=== PATIENT | female | born 1945 | race Hispanic/Latino ===

== ENCOUNTER 2016-08-12 09:30 | Day surgery (SDC) | payer MEDICARE ==
[2016-08-04 12:28] VITALS: BMI 28.3
[2016-08-12 10:23] VITALS: RESP 20; TEMP 97.6
--- NOTE | 2016-08-12 11:08 | CP.SDSHP ---
Same Day Surgery H & P - History Proposed Procedure: US guided FNA of right thyroid nodule Pre-Op Diagnosis: right thyroid nodule - Allergies Allergies: Allergies olanzapine [From Zyprexa] Allergy (Verified 03/01/16 06:14) RASH polen Allergy (Unknown, Uncoded 03/01/16 06:14) CONGESTION - Physical Exam Vital Signs: Vital Signs 08/12/16 09:50 Temperature 97.6 F Pulse Rate 77 Respiratory 20 Rate Blood Pressure 142/85 O2 Sat by Pulse 97 Oximetry Mental Status: Alert & Oriented x3 Neuro: WNL Heart: WNL - Impression Impression: Pt with a 1.1 cm calcified right thyroid nodule. Plan US guided FNA. Pt. Evaluated Today:Candidate for Anesthesia & Procedure: No - Date & Time Date: 08/12/16 Time: 10:55 Short Stay Discharge - Short Stay Discharge Admitting Diagnosis/Reason for Visit: THYROUD NODULE Disposition: HOME/ ROUTINE
--- NOTE | 2016-08-12 11:09 | PCM.SURG1 ---
Surgeon's Initial Post Op Note - Surgeon's Notes Surgeon: Tucker Roger MD Marketing Segment Manager: NONE Type of Anesthesia: Local Pre-Operative Diagnosis: Right thyroid nodule Operative Findings: Calcified right thyroid nodule measuring 1.1 cm Post-Operative Diagnosis: Right thyroid nodule Operation Performed: US guided FNA Specimen/Specimens Removed: 25 g FNA x 4 passes Estimated Blood Loss: EBL {In ML}: 0 Blood Products Given: N/A Drains Used: No Drains Post-Op Condition: Good Date of Surgery/Procedure: 08/12/16 Time of Surgery/Procedure: 11:05
[2016-08-12 12:10] VITALS: O2SAT 98
[2016-08-12 12:12] VITALS: BP 135/83; PULSE 69
--- NOTE | 2016-08-12 14:04 | US ---
PROCEDURE: Date of Procedure: 08/12/2016 PROCEDURE: 1. Ultrasound guided FNA of right thyroid nodule, CPT 98226 2. Ultrasound guidance for FNA, 12008 Medications: 4cc 1% Lidocaine HISTORY: Enlarged right thyroid nodule. TECHNIQUE: Following informed consent and procedure time-out, a limited ultrasound patient's neck confirmed the presence of a 1.5 cm complex right thyroid nodule which is partially calcified. After the patient's neck was prepped and draped in the usual sterile fashion, the skin was anesthetized with 1% lidocaine. Ultrasound-guided fine needle aspiration was then performed of the dominant right thyroid nodule. A total of 4 passes were made into the nodule with 25 gauge needle under ultrasound guidance. The FNA specimen was sent for routine pathology. Post biopsy ultrasound showed no hematoma. IMPRESSION: Ultrasound-guided FNA of the dominant right thyroid nodule.
== END 2016-08-12 11:55 | disposition home or self-care (01) ==
LOC: C.SPRAD 09:30
PROVIDERS: ATTEND Radiology Vascular & Interventional Radiology
DX: E04.1 Nontoxic single thyroid nodule (principal)

== ENCOUNTER 2017-03-16 08:03 | Day surgery (SDC) | payer MEDICARE ==
[2017-03-07 12:45] VITALS: BMI 29.5
[2017-03-16] MEDS ORDERED: Propofol 10 mg/ml Inj (20 ML) ONE ×3 (10:47→11:28)
[2017-03-16] MEDS ORDERED: Lactated Ringer's 500 ML IV SCH (11:00)
[2017-03-16 13:37] VITALS: BP 150/61; PULSE 78; RESP 14; TEMP 96.6; O2SAT 98
== END 2017-03-16 13:20 | disposition home or self-care (01) ==
LOC: C.ENDO 08:03
PROVIDERS: ATTEND Internal Medicine Gastroenterology
DX: D12.2 Benign neoplasm of ascending colon (principal); D12.5 Benign neoplasm of sigmoid colon; K63.5 Polyp of colon; K92.1 Melena; K57.30 Diverticulosis of large intestine without perforation or abscess without bleeding; K64.8 Other hemorrhoids; E11.9 Type 2 diabetes mellitus without complications; E03.9 Hypothyroidism, unspecified; E78.5 Hyperlipidemia, unspecified; I10 Essential (primary) hypertension; Z87.891 Personal history of nicotine dependence
CPT/HCPCS: 45380; 45385; 82948; 88305; J2704; J7120

== ENCOUNTER 2017-10-19 08:19 | Day surgery (SDC) | payer MEDICARE, OTHER ==
[2017-03-07 12:43] VITALS: BMI 29.5
[2017-10-19 10:53] VITALS: TEMP 97
[2017-10-19 10:55] VITALS: O2SAT 96
[2017-10-19 10:56] VITALS: BP 150/66; PULSE 76; RESP 16
[2017-10-19] MEDS ORDERED: Lactated Ringer's 1,000 ML IV SCH (11:15)
--- NOTE | 2017-10-20 14:27 | CARD ---
APPROVED REPORT Date of service: 10/19/2017 EKG Measurement Heart [id number] <Conclusion> Normal sinus rhythm Possible Left atrial enlargement Right bundle branch block Abnormal ECG
== END 2017-10-19 10:45 | disposition home or self-care (01) ==
LOC: C.ENDO 08:19
PROVIDERS: ATTEND Internal Medicine Gastroenterology
DX: Z86.010 Personal history of colon polyps (principal); I45.10 Unspecified right bundle-branch block; Z53.09 Procedure and treatment not carried out because of other contraindication; R07.89 Other chest pain
CPT/HCPCS: 45378; 82948; 93005; J7120

== ENCOUNTER 2017-10-19 10:46 | Inpatient (IN) | payer MEDICARE, OTHER ==
[2017-10-19 10:46] VITALS: BMI 29.5
[2017-10-19] MEDS ORDERED: Aspirin 325 mg EC Tablets PO STA (13:02)
--- NOTE | 2017-10-19 13:13 | RAD ---
Date of service: 10/19/2017 PROCEDURE: CHEST RADIOGRAPH, 1 VIEW HISTORY: Chest pain COMPARISON: 09/05/2013. FINDINGS: LUNGS: The lungs are well inflated and clear. PLEURA: No pneumothorax or pleural fluid seen. CARDIOVASCULAR: Normal. OSSEOUS STRUCTURES: No significant abnormalities. VISUALIZED UPPER ABDOMEN: Normal. OTHER FINDINGS: None. IMPRESSION: No active pulmonary disease.
--- NOTE | 2017-10-19 13:47 | C.PDOC ---
History Of Present Illness 72-year-old female, PMHx includes Hypertension, Diabetes and Hypercholesterolemia, presents to the emergency department with complaints of chest pain. Patient denies fever, vomiting, shortness of breath, or any other associated symptoms. no other complaints at this time. Time Seen by Provider: 10/19/17 12:46 Chief Complaint (Nursing): Chest Pain History Per: Patient History/Exam Limitations: no limitations Onset/Duration Of Symptoms: Hrs Current Symptoms Are (Timing): Still Present Severity: Moderate Past Medical History Reviewed: Historical Data, Nursing Documentation, Vital Signs Vital Signs: Last Vital Signs Temp 98.0 F 10/19/17 11:05 Pulse 76 10/19/17 11:05 Resp 18 10/19/17 11:05 BP 150/66 10/19/17 11:05 Pulse Ox 98 10/19/17 13:48 - Medical History PMH: Anxiety, Arthritis (right knee), Bipolar Disorder, Colonic Polyps, Depression, HTN, Hypercholesterolemia, Hypothyroidism Denies: Diabetes, Hepatitis, Chronic Kidney Disease - [facility] Procedures DRAINAGE OF BLADDER WITH DRAINAGE DEVICE, VIA OPENING (02/27/16) INSERTION OF BIOLOGICAL GRAFT (09/24/13) LAPAROSCOPIC ROBOTIC ASSISTED PROCEDURE (09/24/13) VAGINAL SUSPENSION AND FIXATION WITH GRAFT OR PROSTHESIS (09/24/13) Family History: States: No Known Family Hx - Social History Hx Alcohol Use: No Hx Substance Use: No - Immunization History Hx Tetanus Toxoid Vaccination: No Hx Influenza Vaccination: No Hx Pneumococcal Vaccination: Yes Review Of Systems Except As Marked, All Systems Reviewed And Found Negative. Constitutional: Negative for: Fever, Chills Cardiovascular: Positive for: Chest Pain Musculoskeletal: Negative for: Arm Pain Skin: Negative for: Rash Neurological: Negative for: Weakness, Numbness Physical Exam - Physical Exam Appears: Non-toxic, No Acute Distress Skin: Normal Color, Warm, Dry, No Rash Head: Atraumatic, Normacephalic Eye(s): bilateral: Normal Inspection Nose: Normal Lips: Normal Appearing Neck: Normal ROM Cardiovascular: Rhythm Regular, No Murmur Respiratory: Normal Breath Sounds, No Accessory Muscle Use Gastrointestinal/Abdominal: Soft, No Tenderness Rectal: Heme Negative ED Course And Treatment - Laboratory Results Result Diagrams: 10/19/17 14:00 10/19/17 14:00 O2 Sat by Pulse Oximetry: 98 Pulse Ox Interpretation: Normal Disposition - Disposition Disposition Time: 14:00 Condition: STABLE Forms: [facility] (Tanzanian) - Clinical Impression Clinical Impression: Chest pain - Scribe Statement The provider has reviewed the documentation as recorded by the Scribe (Sheri Martinez) All medical record entries made by the Scribe were at my direction and personally dictated by me. I have reviewed the chart and agree that the record accurately reflects my personal performance of the history, physical exam, medical decision making, and the department course for this patient. I have also personally directed, reviewed, and agree with the discharge instructions and disposition. Physician Patient Turnover Patient Signed Over To: Bee Milton Handoff Comments: pending labs, cxr, reevaluation and disposition
[2017-10-19 14:09] LABS: BASO # 0.1 K/uL (0.0-0.2); BASO % 0.8 % (0.0-2.0); EOS # 0.1 K/uL (0.0-0.7); EOS % 1.4 % (0.0-4.0); HEMOGLOBIN 13.4 g/dL (11.0-16.0); LYMPH # 1.3 K/uL (1.0-4.3); LYMPH % 19.5 % (20.0-40.0); MEAN CELL VOLUME 84.6 fL (81.0-99.0); MEAN CORPUSCULAR HEMOGLOBIN 28.4 pg (27.0-31.0); MEAN CORPUSCULAR HGB CONC 33.5 g/dL (33.0-37.0); MEAN PLATELET VOLUME 8.8 fL (7.2-11.7); MONO # 0.6 K/uL (0.0-0.8); MONO % 8.2 % (0.0-10.0); NEUT # 4.8 K/uL (1.8-7.0); NEUT % 70.1 % (50.0-75.0); NRBC % 0.1 % (0.0-2.0); RBC 4.72 Mil/uL (3.80-5.20); RED CELL DISTRIBUTION WIDTH 14.3 % (11.5-14.5); WHITE BLOOD COUNT 6.9 K/uL (4.8-10.8)
[2017-10-19] MEDS ORDERED: Aspirin 325 mg EC Tablets PO ONE (14:16)
[2017-10-19 14:33] LABS: ALB/GLOB RATIO 1.5 (1.0-2.1); ALBUMIN 4.5 g/dL (3.5-5.0); ALT/SGPT 23 U/L (9-52); AST/SGOT 20 U/L (14-36); BLOOD UREA NITROGEN 8 mg/dL (7-17); CALCIUM 9.5 mg/dl (8.6-10.4); GFR NON-AFRICAN AMERICAN > 60
[2017-10-19] MEDS ORDERED: Glucagon Recombinant 1 mg Inj IM PRN (20:37)
[2017-10-19] MEDS ORDERED: Dextrose 50% SYRINGE Inj (50 ml) IV PRN (20:37)
[2017-10-19 20:48] LABS: CK-MB 1.99 ng/mL (0.0-3.38)
[2017-10-19] MEDS: buPROPion 150 mg/24 Hours XL Tab PO SCH (21:48)
[2017-10-19] MEDS: (Novolog) Insulin Aspart, Recombinant 100 u/ml 10 ml vial SC SCH (22:15)
--- NOTE | 2017-10-19 23:00 | CP.PCM.HP ---
History of Present Illness - History of Present Illness History of Present Illness: cc: chest pain Ms. Juarez is a 72 year old female with PMH hypertension, hyperlipidemia, diabetes, hypothyroidism, anxiety, depression, bipolar with multiple psychiatric hospitalizations, osteoarthritis was admitted today for chest pain while going though her pre-op checklist for routine colonoscopy. She first felt the stabbing pain in her left upper chest when getting dressed for leaving the house. The lightheadedness made her sit down, and it went away in less than 10 minutes with just rest. She felt it again about an hour later at the colonoscopy site, and it similarly went away with rest. She has not felt the pain again since then. It did not radiate and was a 10/10 on the pain scale. Denies headache, diaphoresis, dizziness, syncope, blurry vision, double vision, shortness of breath, nausea, vomiting. ED course: Tylenol, Aspirin, CXR PMH: HTN, HLD, DM, hypothyroidism, anxiety, depression, bipolar, OA PSxH: bilateral carpal tunnel release, L ear surgery for impaired hearing, hemorrhoidectomy, thyroid bx, robotic assisted R sacrocolpopexy and transvaginal sling FamHx: Mother - DM, unknown cause. Father - [place] 60 SocHx: quit smoking <1year ago, 1 ppd smoker. Denies alcohol, denies drugs. Lives alone at senior citizen living. Worked doin basic office work/filing/ typing. Meds: MVI, VitD, Zestril, Synthroid, Pharbetol, Janumet, Wellbutrin, Lamictal All: olanzapine Full Code Proxy: Daughter Teresa Caba [phone] PMD: Latisha Treichlers - [place] calls every 4-6 weeks Present on Admission - Present on Admission Any Indicators Present on Admission: No Review of Systems - Constitutional Constitutional: absent: Anorexia, Chills, Fatigue, Fever, Lethargy - EENT Eyes: absent: Blurred Vision, Diplopia, Dry Eye, Floaters, Sees Flashes, Spots in Vision Ears: Decreased Hearing, Tinnitus. absent: Disequilibrium, Dizziness Nose/Mouth/Throat: absent: Nasal Obstruction, Nasal Trauma, Dysphagia, Odynophagia - Cardiovascular Cardiovascular: Chest Pain, Lightheadedness. absent: Chest Pain at Rest, Claudication, Diaphoresis, Dyspnea, Dyspnea on Exertion, Edema, Pain Radiating to Arm/Neck/Jaw, Leg Edema, Palpitations, Radiating Pain, Rapid Heart Rate, Slow Heart Rate, Syncope - Respiratory Respiratory: absent: Cough, Dyspnea, Hemoptysis, Wheezing, Chest Congestion - Gastrointestinal Gastrointestinal: Dyspepsia, Heartburn. absent: Abdominal Pain, Constipation, Diarrhea, Dysphagia, Odynophagia - Genitourinary Genitourinary: absent: Urinary Frequency, Urinary Hesitance, Urinary Urgency - Musculoskeletal Musculoskeletal: absent: Abnormal Gait, Muscle Weakness, Myalgias - Integumentary Integumentary: absent: Dry Skin, Rash - Neurological Neurological: absent: Abnormal Speech, Disequilibrium, Frequent Falls - Psychiatric Psychiatric: absent: Auditory Hallucinations, Behavioral Changes, Homicidal Ideation, Suicidal Ideation - Endocrine Endocrine: absent: Excessive Sweating, Fatigue, Flushing, Palpitations - Hematologic/Lymphatic Hematologic: absent: Easy Bleeding, Easy Bruising Past Patient History - Infectious Disease Hx of Infectious Diseases: None - Past Medical History & Family History Past Medical History?: Yes - Past Social History Smoking Status: Former Smoker Alcohol: None Drugs: Denies - CARDIAC Hx Hypercholesterolemia: Yes Hx Hypertension: Yes - PULMONARY Hx Respiratory Disorders: No - HEENT Hx HEENT Problems: Yes 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 HX: THYROID NODULE - RENAL Hx Chronic Kidney Disease: No - ENDOCRINE/METABOLIC Hx Hypothyroidism: Yes - INTEGUMENTARY Hx Dermatological Problems: No - MUSCULOSKELETAL/RHEUMATOLOGICAL Hx Arthritis: Yes (right knee) - GASTROINTESTINAL Hx Gastrointestinal Disorders: Yes Hx Hemorrhoids: Yes - PSYCHIATRIC Hx Anxiety: Yes Hx Bipolar Disorder: Yes Hx Depression: Yes Hx Substance Use: No - SURGICAL HISTORY Hx Surgeries: Yes Hx Dilation and Curettage: Yes Other/Comment: carpal tunnel release b/l. perforated eardrum repair, left ear x2. hemorrhoidectomy. HX: ROBOTIC SCAROLOPEXY WITH SLING 09/24/13 - ANESTHESIA Hx Anesthesia: Yes Hx Anesthesia Reactions: Yes (n/v) Hx Malignant Hyperthermia: No Meds Allergies/Adverse Reactions: Allergies Allergy/AdvReac Type Severity Reaction Status Date / Time olanzapine [From Zyprexa] Allergy Intermediate RASH Verified 10/19/17 09:18 polen Allergy Intermediate CONGESTION Uncoded 10/19/17 09:18 Physical Exam - Constitutional Appears: Non-toxic, No Acute Distress - Head Exam Head Exam: ATRAUMATIC, NORMOCEPHALIC - Eye Exam Eye Exam: EOMI, Normal appearance - ENT Exam ENT Exam: Mucous Membranes Moist, Normal Exam - Respiratory Exam Respiratory Exam: Clear to Auscultation Bilateral, NORMAL BREATHING PATTERN. absent: Accessory Muscle Use, Rales, Rhonchi, Wheezes - Cardiovascular Exam Cardiovascular Exam: REGULAR RHYTHM, +S1, +S2. absent: Tachycardia, Gallop, Irregular Rhythm, JVD, Systolic Murmur - GI/Abdominal Exam GI & Abdominal Exam: Normal Bowel Sounds, Soft. absent: Tenderness - Extremities Exam Extremities exam: Positive for: normal capillary refill, normal inspection, pedal pulses present. Negative for: joint swelling, pedal edema, tenderness - Back Exam Back exam: NORMAL INSPECTION. absent: paraspinal tenderness, vertebral tenderness - Neurological Exam Neurological exam: Alert, CN II-XII Intact, Normal Gait, Oriented x3, Reflexes Normal - Psychiatric Exam Psychiatric exam: Anxious Additional comments: labile mood. combative with nursing staff - Skin Skin Exam: Dry, Intact, Normal Color, Warm Results - Vital Signs Recent Vital Signs: Last Vital Signs Temp 98.1 F 10/19/17 18:05 Pulse 75 10/19/17 18:05 Resp 18 10/19/17 18:05 BP 120/74 10/19/17 18:05 Pulse Ox 97 10/19/17 18:05 - Labs Result Diagrams: 10/19/17 14:00 10/19/17 14:00 Labs: Laboratory Results - last 24 hr 10/19/17 10/19/17 10/19/17 14:00 14:00 20:17 WBC 6.9 RBC 4.72 Hgb 13.4 Hct 40.0 MCV 84.6 MCH 28.4 MCHC 33.5 RDW 14.3 Plt Count 234 MPV 8.8 Neut % (Auto) 70.1 Lymph % (Auto) 19.5 L [place] % (Auto) 8.2 Eos % (Auto) 1.4 Baso % (Auto) 0.8 Neut # (Auto) 4.8 Lymph # (Auto) 1.3 [place] # (Auto) 0.6 Eos # (Auto) 0.1 Baso # (Auto) 0.1 Sodium 140 Potassium 4.1 Chloride 101 Carbon Dioxide 26 Anion Gap 17 BUN 8 Creatinine 0.6 L Est GFR ( Amer) > 60 Est GFR (Non-Af Amer) > 60 POC Glucose (mg/dL) Random Glucose 121 H Calcium 9.5 Total Bilirubin 0.6 AST 20 ALT 23 Alkaline Phosphatase 101 Total Creatine Kinase 150 H 157 H CK-MB (Mass) 1.99 Troponin I < 0.0120 < 0.0120 NT-Pro-B Natriuret Pep 28.0 Total Protein 7.5 Albumin 4.5 Globulin 3.0 Albumin/Globulin Ratio 1.5 10/19/17 21:40 WBC RBC Hgb Hct MCV MCH MCHC RDW Plt Count MPV Neut % (Auto) Lymph % (Auto) [place] % (Auto) Eos % (Auto) Baso % (Auto) Neut # (Auto) Lymph # (Auto) [place] # (Auto) Eos # (Auto) Baso # (Auto) Sodium Potassium Chloride Carbon Dioxide Anion Gap BUN Creatinine Est GFR ( Amer) Est GFR (Non-Af Amer) POC Glucose (mg/dL) 119 H Random Glucose Calcium Total Bilirubin AST ALT Alkaline Phosphatase Total Creatine Kinase CK-MB (Mass) Troponin I NT-Pro-B Natriuret Pep Total Protein Albumin Globulin Albumin/Globulin Ratio Assessment & Plan - Assessment and Plan (Free Text) Assessment: 72yoF with PMH HTN, DM, HLD, bipolar, hypothyroidism, anxiety, depression, tinnitus admitted for intermittent chest pain, r/o ACS. Plan: 1) Chest Pain r/o ACS - CXR: neg - ROMIs and EKGs negative x2, pending third set - worsened by anxiety inducing events/exertion, relieved by rest - EKG shows RBBB, non acute - BNP 28.0, CK 150 - f/u lipid panel, Hgb A1c - ASA 81mg po daily Hypertension - Cont Lisinopril 20mg po daily - Monitor vitals Diabetes - Accucheck ACHS - ISS moderate - hypoglycemia protocol - Januvia 50mg po bid - Metformin 500mg po bid Hypothyroidism - TSH 5.04 - f/u free T4 - currently on Levothyroxine 75mcg po ACB - although atient is asymptomatic at this time, consider increasing dose to 100mcg Hx Bipolar, anxiety, depression - denies current SI, HI, hallucinations - Cont bupropion 300mg po HS - Cont Lamictal 200mg po daily Vitamin D deficiency - Cont home Ergocalciferol - NF -> Ergocalciferol 50,000 1 cap po q7d PPx - GI: Protonix 40mg po daily - DVT: Lovenox 40mg sc daily, SCDs unnecessary - patient is walking - Home Pharbetol (acetaminophen) 500mg po prn for pain - MVI - Heart Healthy Diet will d/w Dr. Liv Michelle PGY-1 - Date & Time Date: 10/19/17 Time: 20:00
[2017-10-20 02:49] LABS: CK-MB 2.26 ng/mL (0.0-3.38)
[2017-10-20] MEDS: Levothyroxine 75 MCG TAB PO SCH (06:41)
[2017-10-20 07:20] LABS: BASO % 0.5 % (0.0-2.0); EOS # 0.1 K/uL (0.0-0.7); EOS % 1.7 % (0.0-4.0); LYMPH # 1.2 K/uL (1.0-4.3); MEAN CELL VOLUME 84.2 fL (81.0-99.0); MEAN CORPUSCULAR HEMOGLOBIN 28.7 pg (27.0-31.0); MEAN CORPUSCULAR HGB CONC 34.1 g/dL (33.0-37.0); MEAN PLATELET VOLUME 9.1 fL (7.2-11.7); MONO # 0.6 K/uL (0.0-0.8); MONO % 8.4 % (0.0-10.0); NEUT % 72.4 % (50.0-75.0); NRBC % 0.1 % (0.0-2.0); RBC 4.52 Mil/uL (3.80-5.20); RED CELL DISTRIBUTION WIDTH 13.9 % (11.5-14.5)
[2017-10-20 07:50] LABS: LDL CHOLESTEROL 112 mg/dL (0-129)
[2017-10-20 07:53] LABS: ALB/GLOB RATIO 1.4 (1.0-2.1); ALBUMIN 3.9 g/dL (3.5-5.0); ALT/SGPT 26 U/L (9-52); AST/SGOT 18 U/L (14-36); BLOOD UREA NITROGEN 11 mg/dL (7-17); CALCIUM 9.4 mg/dl (8.6-10.4); GFR NON-AFRICAN AMERICAN > 60; HDL CHOLESTEROL 41 mg/dL (30-70)
[2017-10-20] MEDS: (Novolog) Insulin Aspart, Recombinant 100 u/ml 10 ml vial SC SCH ×4 (09:02→21:06)
--- NOTE | 2017-10-20 09:32 | CP.PCM.DIS ---
Provider - Provider Date of Admission: 10/19/17 16:01 Attending physician: Checo Peck Jr, MD Primary care physician: Dr. Latisha Esquivel Time Spent in preparation of Discharge (in minutes): 40 Diagnosis - Discharge Diagnosis (1) Chest pain Status: Acute Comment: troponins negative X 3 Hospital Course - Lab Results Lab Results: Most Recent Lab Values WBC 7.0 K/uL (4.8-10.8) 10/20/17 06:35 RBC 4.52 Mil/uL (3.80-5.20) 10/20/17 06:35 Hgb 13.0 g/dL (11.0-16.0) 10/20/17 06:35 Hct 38.0 % (34.0-47.0) 10/20/17 06:35 MCV 84.2 fL (81.0-99.0) 10/20/17 06:35 MCH 28.7 pg (27.0-31.0) 10/20/17 06:35 MCHC 34.1 g/dL (33.0-37.0) 10/20/17 06:35 RDW 13.9 % (11.5-14.5) 10/20/17 06:35 Plt Count 209 K/uL (130-400) 10/20/17 06:35 MPV 9.1 fL (7.2-11.7) 10/20/17 06:35 Neut % (Auto) 72.4 % (50.0-75.0) 10/20/17 06:35 Lymph % (Auto) 17.0 % (20.0-40.0) L 10/20/17 06:35 [place] % (Auto) 8.4 % (0.0-10.0) 10/20/17 06:35 Eos % (Auto) 1.7 % (0.0-4.0) 10/20/17 06:35 Baso % (Auto) 0.5 % (0.0-2.0) 10/20/17 06:35 Neut # (Auto) 5.0 K/uL (1.8-7.0) 10/20/17 06:35 Lymph # (Auto) 1.2 K/uL (1.0-4.3) 10/20/17 06:35 [place] # (Auto) 0.6 K/uL (0.0-0.8) 10/20/17 06:35 Eos # (Auto) 0.1 K/uL (0.0-0.7) 10/20/17 06:35 Baso # (Auto) 0.0 K/uL (0.0-0.2) 10/20/17 06:35 Sodium 140 mmol/L (132-148) 10/20/17 06:35 Potassium 4.2 mmol/L (3.6-5.2) 10/20/17 06:35 Chloride 102 mmol/L (98-107) 10/20/17 06:35 Carbon Dioxide 29 mmol/L (22-30) 10/20/17 06:35 Anion Gap 13 (10-20) 10/20/17 06:35 BUN 11 mg/dL (7-17) 10/20/17 06:35 Creatinine 0.7 mg/dL (0.7-1.2) 10/20/17 06:35 Est GFR ( Amer) > 60 10/20/17 06:35 Est GFR (Non-Af Amer) > 60 10/20/17 06:35 POC Glucose (mg/dL) 160 mg/dL (65-110) H 10/20/17 06:11 Random Glucose 154 mg/dL (65-105) H 10/20/17 06:35 Hemoglobin A1c 7.2 % (4.2-6.5) H 10/20/17 06:35 Calcium 9.4 mg/dl (8.6-10.4) 10/20/17 06:35 Phosphorus 3.8 mg/dL (2.5-4.5) 10/20/17 06:35 Magnesium 2.1 mg/dL (1.6-2.3) 10/20/17 06:35 Total Bilirubin 0.4 mg/dL (0.2-1.3) 10/20/17 06:35 AST 18 U/L (14-36) 10/20/17 06:35 ALT 26 U/L (9-52) 10/20/17 06:35 Alkaline Phosphatase 78 U/L (38-126) 10/20/17 06:35 Total Creatine Kinase 149 U/L (30-135) H 10/20/17 02:23 CK-MB (Mass) 2.26 ng/mL (0.0-3.38) 10/20/17 02:23 Troponin I < 0.0120 ng/mL (0.00-0.120) 10/20/17 02:23 NT-Pro-B Natriuret Pep 28.0 pg/mL (0-900) 10/19/17 14:00 Total Protein 6.7 g/dL (6.3-8.3) 10/20/17 06:35 Albumin 3.9 g/dL (3.5-5.0) 10/20/17 06:35 Globulin 2.8 gm/dL (2.2-3.9) 10/20/17 06:35 Albumin/Globulin Ratio 1.4 (1.0-2.1) 10/20/17 06:35 Triglycerides 187 mg/dL (0-149) H 10/20/17 06:35 Cholesterol 208 mg/dL (0-199) H 10/20/17 06:35 LDL Cholesterol Direct 112 mg/dL (0-129) 10/20/17 06:35 HDL Cholesterol 41 mg/dL (30-70) 10/20/17 06:35 Free T4 0.76 ng/dL (0.78-2.19) L 10/20/17 06:35 TSH 3rd Generation 5.04 mIU/L (0.46-4.68) H 10/19/17 20:17 - Hospital Course Hospital Course: Ms. Juarez is a 72 year old female with PMH hypertension, hyperlipidemia, diabetes, hypothyroidism, anxiety, depression, bipolar with multiple psychiatric hospitalizations, osteoarthritis was admitted today for chest pain while going though her pre-op checklist for routine colonoscopy. She first felt the stabbing pain in her left upper chest when getting dressed for leaving the house. The lightheadedness made her sit down, and it went away in less than 10 minutes with just rest. She felt it again about an hour later at the colonoscopy site, and it similarly went away with rest. She has not felt the pain again since then. It did not radiate and was a 10/10 on the pain scale. Denies headache, diaphoresis, dizziness, syncope, blurry vision, double vision, shortness of breath, nausea, vomiting. Patient was admitted for R/o ACS. Troponins X3 were negative, CXR showed no active disease. EKGs showed NSR, no ST elevation, RBBB. Patient reported her chest pain had resolved and currently had no other complaints. Discharge Exam - Head Exam Head Exam: ATRAUMATIC, NORMOCEPHALIC Discharge Plan - Follow Up Plan Condition: STABLE Disposition: HOME/ ROUTINE
[2017-10-20] MEDS ORDERED: Ergocalciferol 50,000 Intl Units Cap PO SCH (10:00)
[2017-10-20] MEDS: Enoxaparin 40 mg Syringe SC SCH (10:54)
[2017-10-20] MEDS: Pantoprazole 40 mg EC Tab PO SCH (10:54)
[2017-10-20] MEDS: Multivitamin With Minerals Tab PO SCH (10:54)
--- NOTE | 2017-10-20 14:27 | CARD ---
APPROVED REPORT Date of service: 10/19/2017 EKG Measurement Heart [id number] <Conclusion> Normal sinus rhythm Right bundle branch block Abnormal ECG
--- NOTE | 2017-10-20 18:41 | CP.PCM.PN ---
<Ramos Andres M - Last Filed: 10/20/17 18:38> Subjective - Date & Time of Evaluation Date of Evaluation: 10/20/17 Time of Evaluation: 09:10 - Subjective Subjective: PGY 1 Medicine Progress Note for Dr. Peck. Patient seen and examined at bedside. Patient lying in bed in no acute distress. Patient currently has no complaints. Patient denies chest pain, shortness of breath, nausea, vomiting, constipation, trouble with voiding. Objective - Vital Signs/Intake and Output Vital Signs (last 24 hours): Temp Pulse Resp BP Pulse Ox 97.7 F 70 20 145/74 98 10/20/17 15:00 10/20/17 15:00 10/20/17 15:00 10/20/17 15:00 10/20/17 15:00 - Medications Medications: Current Medications Acetaminophen (Tylenol 325mg Tab) 650 mg PO Q6H PRN PRN Reason: Pain, Mild (1-3) Aspirin (Aspirin Chewable) 81 mg PO DAILY [facility] Last Admin: 10/20/17 10:54 Dose: 81 mg Bupropion HCl (Wellbutrin Xl) 300 mg PO HS [facility] Last Admin: 10/19/17 21:48 Dose: 300 mg Dextrose (Dextrose 50% Inj) 0 ml IV STAT PRN; Protocol PRN Reason: Hypoglycemia Protocol Dextrose (Glutose 15) 0 gm PO ONCE PRN; Protocol PRN Reason: Hypoglycemia Protocol Enoxaparin Sodium (Lovenox) 40 mg SC DAILY [facility] Last Admin: 10/20/17 10:54 Dose: 40 mg Ergocalciferol (Drisdol 50,000 Intl Units Cap) 1 cap PO QWK [facility] Last Admin: 10/20/17 10:54 Dose: 1 cap Glucagon (Glucagen Diagnostic Kit) 0 mg IM STAT PRN; Protocol PRN Reason: Hypoglycemia Protocol Dextrose (Dextrose 5% In Water 1000 Ml) 1,000 mls @ 0 mls/hr IV .Q0M PRN; Protocol; Per Protocol PRN Reason: Hypoglycemia Protocol Insulin Aspart (Novolog) 0 unit SC ACHS [facility] PRN Reason: Protocol Last Admin: 10/20/17 17:56 Dose: Not Given Lamotrigine (Lamictal) 200 mg PO DAILY [facility] Last Admin: 10/20/17 10:55 Dose: 200 mg Levothyroxine Sodium (Synthroid) 75 mcg PO ACB [facility] Last Admin: 10/20/17 06:41 Dose: 75 mcg Lisinopril (Zestril) 20 mg PO DAILY [facility] Last Admin: 10/20/17 10:54 Dose: 20 mg Metformin HCl (Glucophage) 500 mg PO BID [facility] Last Admin: 10/20/17 17:56 Dose: 500 mg Multivitamins/Minerals (Therapeutic-M Tab) 1 tab PO DAILY [facility] Last Admin: 10/20/17 10:54 Dose: 1 tab Pantoprazole Sodium (Protonix Ec Tab) 40 mg PO DAILY [facility] Last Admin: 10/20/17 10:54 Dose: 40 mg Sitagliptin Phosphate (Januvia) 50 mg PO BID [facility] Last Admin: 10/20/17 17:56 Dose: 50 mg - Labs Labs: 10/20/17 06:35 10/20/17 06:35 - Constitutional Appears: Well, Non-toxic, No Acute Distress - Head Exam Head Exam: ATRAUMATIC, NORMAL INSPECTION, NORMOCEPHALIC - Eye Exam Eye Exam: EOMI, Normal appearance - ENT Exam ENT Exam: Mucous Membranes Moist - Neck Exam Neck Exam: Normal Inspection - Respiratory Exam Respiratory Exam: Clear to Ausculation Bilateral, NORMAL BREATHING PATTERN. absent: Rales, Wheezes - Cardiovascular Exam Cardiovascular Exam: +S1, +S2. absent: Irregular Rhythm, Murmur - GI/Abdominal Exam GI & Abdominal Exam: Soft, Normal Bowel Sounds. absent: Firm, Guarding, Rigid - Extremities Exam Extremities Exam: Full ROM, Normal Inspection. absent: Calf Tenderness, Pedal Edema - Neurological Exam Neurological Exam: Alert, Awake, Oriented x3 - Psychiatric Exam Psychiatric exam: Anxious - Skin Skin Exam: Dry, Intact, Normal Color, Warm Assessment and Plan (1) Chest pain Status: Acute - Assessment and Plan (Free Text) Assessment: 72yoF with PMH HTN, DM, HLD, bipolar, hypothyroidism, anxiety, depression, tinnitus admitted for intermittent chest pain, r/o ACS 1) Chest Pain r/o ACS - CXR: neg - ROMIs and EKGs negative x3 - EKG shows RBBB, non acute - BNP 28.0, CK 150 - TGs 187, Cholesterol 208, LDL 112, HDL 41 , Hgb A1c 7.2 - ASA 81mg po daily Hypertension - Cont Lisinopril 20mg po daily - Monitor vitals Diabetes - Accucheck ACHS - ISS moderate - hypoglycemia protocol - Januvia 50mg po bid - Metformin 500mg po bid Hypothyroidism - TSH 5.04 - Free T4 0.76 - currently on Levothyroxine 75mcg po ACB - although patient is asymptomatic at this time, will discuss w/ Dr. Peck to increase dose to 100mcg Hx Bipolar, anxiety, depression - denies current SI, HI, hallucinations - Cont bupropion 300mg po HS - Cont Lamictal 200mg po daily Vitamin D deficiency - Cont home Ergocalciferol - NF -> Ergocalciferol 50,000 1 cap po q7d PPx - GI: Protonix 40mg po daily - DVT: Lovenox 40mg sc daily, SCDs - Home Pharbetol (acetaminophen) 500mg po prn for pain - MVI - Heart Healthy Diet Dispo: Patient is likely D/C tomorrow 10/21. Will need to discuss with Dr. Peck to increase leovthyroxine to 100mcg as patient Free T4 is 0.76 PGY1 Ramos Andres will d/w Dr. Peck <Checo Peck Jr. - Last Filed: 10/23/17 13:19> Objective - Vital Signs/Intake and Output Vital Signs (last 24 hours): Temp Pulse Resp BP Pulse Ox 97.3 F L 73 20 116/71 99 10/22/17 15:00 10/22/17 15:00 10/22/17 15:00 10/22/17 15:00 10/22/17 15:00 - Labs Labs: 10/22/17 07:00 10/22/17 07:00 PT 10.6 SECONDS (9.7-12.2) 10/21/17 07:14 INR 1.0 10/21/17 07:14 APTT 35 SECONDS (21-34) H 10/21/17 07:14 Attending/Attestation - Attestation I have personally seen and examined this patient.: Yes I have fully participated in the care of the patient.: Yes I have reviewed all pertinent clinical information, including history, physical exam and plan: Yes Notes (Text): 10/23/17 13:19 Reviewed resident note. Agree with findings and plan.
--- NOTE | 2017-10-20 19:20 | CARD ---
APPROVED REPORT Date of service: 10/20/2017 EKG Measurement Heart [id number] <Conclusion> Normal sinus rhythm Right bundle branch block Abnormal ECG
[2017-10-20] MEDS: buPROPion 150 mg/24 Hours XL Tab PO SCH (21:04)
[2017-10-20] MEDS: Sodium Chloride 0.45% 1,000 ML IV SCH (21:43)
--- NOTE | 2017-10-20 22:39 | CP.PCM.CON ---
History of Present Illness - History of Present Illness History of Present Illness: 72 F with multiple cardiac risk factors admitted for chest pain and dyspnea with exertion Examination reveals Aortic stenotic murmur Cardiac cath tomorrow D/W the patient who is agreebale Check ECHO Past Patient History - Infectious Disease Hx of Infectious Diseases: None - Past Medical History & Family History Past Medical History?: Yes - Past Social History Smoking Status: Former Smoker Alcohol: None Drugs: Denies - CARDIAC Hx Hypercholesterolemia: Yes Hx Hypertension: Yes - PULMONARY Hx Respiratory Disorders: No - HEENT Hx HEENT Problems: Yes 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 HX: THYROID NODULE - RENAL Hx Chronic Kidney Disease: No - ENDOCRINE/METABOLIC Hx Hypothyroidism: Yes - INTEGUMENTARY Hx Dermatological Problems: No - MUSCULOSKELETAL/RHEUMATOLOGICAL Hx Arthritis: Yes (right knee) - GASTROINTESTINAL Hx Gastrointestinal Disorders: Yes Hx Hemorrhoids: Yes - PSYCHIATRIC Hx Anxiety: Yes Hx Bipolar Disorder: Yes Hx Depression: Yes Hx Substance Use: No - SURGICAL HISTORY Hx Surgeries: Yes Hx Dilation and Curettage: Yes Other/Comment: carpal tunnel release b/l. perforated eardrum repair, left ear x2. hemorrhoidectomy. HX: ROBOTIC SCAROLOPEXY WITH SLING 09/24/13 - ANESTHESIA Hx Anesthesia: Yes Hx Anesthesia Reactions: Yes (n/v) Hx Malignant Hyperthermia: No Meds Allergies/Adverse Reactions: Allergies Allergy/AdvReac Type Severity Reaction Status Date / Time olanzapine [From Zyprexa] Allergy Intermediate RASH Verified 10/19/17 09:18 polen Allergy Intermediate CONGESTION Uncoded 10/19/17 09:18 - Medications Medications: Current Medications Acetaminophen (Tylenol 325mg Tab) 650 mg PO Q6H PRN PRN Reason: Pain, Mild (1-3) Aspirin (Aspirin Chewable) 81 mg PO DAILY [facility] Last Admin: 10/20/17 10:54 Dose: 81 mg Bupropion HCl (Wellbutrin Xl) 300 mg PO HS [facility] Last Admin: 10/20/17 21:04 Dose: 300 mg Dextrose (Dextrose 50% Inj) 0 ml IV STAT PRN; Protocol PRN Reason: Hypoglycemia Protocol Dextrose (Glutose 15) 0 gm PO ONCE PRN; Protocol PRN Reason: Hypoglycemia Protocol Enoxaparin Sodium (Lovenox) 40 mg SC DAILY [facility] Last Admin: 10/20/17 10:54 Dose: 40 mg Ergocalciferol (Drisdol 50,000 Intl Units Cap) 1 cap PO QWK [facility] Last Admin: 10/20/17 10:54 Dose: 1 cap Glucagon (Glucagen Diagnostic Kit) 0 mg IM STAT PRN; Protocol PRN Reason: Hypoglycemia Protocol Dextrose (Dextrose 5% In Water 1000 Ml) 1,000 mls @ 0 mls/hr IV .Q0M PRN; Protocol; Per Protocol PRN Reason: Hypoglycemia Protocol Sodium Chloride (Sodium Chloride 0.45%) 1,000 mls @ 60 mls/hr IV .[id number] [facility] Stop: 10/21/17 23:59 Last Admin: 10/20/17 21:43 Dose: 60 mls/hr Insulin Aspart (Novolog) 0 unit SC ACHS [facility] PRN Reason: Protocol Last Admin: 10/20/17 21:06 Dose: Not Given Lamotrigine (Lamictal) 200 mg PO DAILY [facility] Last Admin: 10/20/17 10:55 Dose: 200 mg Levothyroxine Sodium (Synthroid) 75 mcg PO ACB [facility] Last Admin: 10/20/17 06:41 Dose: 75 mcg Lisinopril (Zestril) 20 mg PO DAILY [facility] Last Admin: 10/20/17 10:54 Dose: 20 mg Metformin HCl (Glucophage) 500 mg PO BID [facility] Last Admin: 10/20/17 17:56 Dose: 500 mg Multivitamins/Minerals (Therapeutic-M Tab) 1 tab PO DAILY [facility] Last Admin: 10/20/17 10:54 Dose: 1 tab Pantoprazole Sodium (Protonix Ec Tab) 40 mg PO DAILY [facility] Last Admin: 10/20/17 10:54 Dose: 40 mg Sitagliptin Phosphate (Januvia) 50 mg PO BID [facility] Last Admin: 10/20/17 17:56 Dose: 50 mg Results - Vital Signs Recent Vital Signs: Last Vital Signs Temp 97.7 F 10/20/17 15:00 Pulse 70 10/20/17 15:00 Resp 20 10/20/17 15:00 BP 145/74 10/20/17 15:00 Pulse Ox 98 10/20/17 15:00 - Labs Result Diagrams: 10/20/17 06:35 10/20/17 06:35 Labs: Laboratory Results - last 24 hr 10/19/17 10/20/17 10/20/17 20:17 02:23 06:11 WBC RBC Hgb Hct MCV MCH MCHC RDW Plt Count MPV Neut % (Auto) Lymph % (Auto) [place] % (Auto) Eos % (Auto) Baso % (Auto) Neut # (Auto) Lymph # (Auto) [place] # (Auto) Eos # (Auto) Baso # (Auto) Sodium Potassium Chloride Carbon Dioxide Anion Gap BUN Creatinine Est GFR ( Amer) Est GFR (Non-Af Amer) POC Glucose (mg/dL) 160 H Random Glucose Hemoglobin A1c Calcium Phosphorus Magnesium Total Bilirubin AST ALT Alkaline Phosphatase Total Creatine Kinase 149 H CK-MB (Mass) 2.26 Troponin I < 0.0120 Total Protein Albumin Globulin Albumin/Globulin Ratio Triglycerides Cholesterol LDL Cholesterol Direct HDL Cholesterol Free T4 TSH 3rd Generation 5.04 H 10/20/17 10/20/17 10/20/17 06:35 06:35 06:35 WBC 7.0 RBC 4.52 Hgb 13.0 Hct 38.0 MCV 84.2 MCH 28.7 MCHC 34.1 RDW 13.9 Plt Count 209 MPV 9.1 Neut % (Auto) 72.4 Lymph % (Auto) 17.0 L [place] % (Auto) 8.4 Eos % (Auto) 1.7 Baso % (Auto) 0.5 Neut # (Auto) 5.0 Lymph # (Auto) 1.2 [place] # (Auto) 0.6 Eos # (Auto) 0.1 Baso # (Auto) 0.0 Sodium 140 Potassium 4.2 Chloride 102 Carbon Dioxide 29 Anion Gap 13 BUN 11 Creatinine 0.7 Est GFR ( Amer) > 60 Est GFR (Non-Af Amer) > 60 POC Glucose (mg/dL) Random Glucose 154 H Hemoglobin A1c 7.2 H Calcium 9.4 Phosphorus 3.8 Magnesium 2.1 Total Bilirubin 0.4 AST 18 ALT 26 Alkaline Phosphatase 78 Total Creatine Kinase CK-MB (Mass) Troponin I Total Protein 6.7 Albumin 3.9 Globulin 2.8 Albumin/Globulin Ratio 1.4 Triglycerides 187 H Cholesterol 208 H LDL Cholesterol Direct 112 HDL Cholesterol 41 Free T4 TSH 3rd Generation 10/20/17 10/20/17 10/20/17 06:35 11:10 16:21 WBC RBC Hgb Hct MCV MCH MCHC RDW Plt Count MPV Neut % (Auto) Lymph % (Auto) [place] % (Auto) Eos % (Auto) Baso % (Auto) Neut # (Auto) Lymph # (Auto) [place] # (Auto) Eos # (Auto) Baso # (Auto) Sodium Potassium Chloride Carbon Dioxide Anion Gap BUN Creatinine Est GFR ( Amer) Est GFR (Non-Af Amer) POC Glucose (mg/dL) 225 H 79 Random Glucose Hemoglobin A1c Calcium Phosphorus Magnesium Total Bilirubin AST ALT Alkaline Phosphatase Total Creatine Kinase CK-MB (Mass) Troponin I Total Protein Albumin Globulin Albumin/Globulin Ratio Triglycerides Cholesterol LDL Cholesterol Direct HDL Cholesterol Free T4 0.76 L TSH 3rd Generation 10/20/17 21:01 WBC RBC Hgb Hct MCV MCH MCHC RDW Plt Count MPV Neut % (Auto) Lymph % (Auto) [place] % (Auto) Eos % (Auto) Baso % (Auto) Neut # (Auto) Lymph # (Auto) [place] # (Auto) Eos # (Auto) Baso # (Auto) Sodium Potassium Chloride Carbon Dioxide Anion Gap BUN Creatinine Est GFR ( Amer) Est GFR (Non-Af Amer) POC Glucose (mg/dL) 149 H Random Glucose Hemoglobin A1c Calcium Phosphorus Magnesium Total Bilirubin AST ALT Alkaline Phosphatase Total Creatine Kinase CK-MB (Mass) Troponin I Total Protein Albumin Globulin Albumin/Globulin Ratio Triglycerides Cholesterol LDL Cholesterol Direct HDL Cholesterol Free T4 TSH 3rd Generation
[2017-10-21] MEDS: Levothyroxine 75 MCG TAB PO SCH (06:35)
[2017-10-21 07:30] LABS: BASO # 0.1 K/uL (0.0-0.2); BASO % 0.7 % (0.0-2.0); EOS # 0.2 K/uL (0.0-0.7); EOS % 2.1 % (0.0-4.0); HEMOGLOBIN 12.7 g/dL (11.0-16.0); LYMPH # 1.4 K/uL (1.0-4.3); LYMPH % 17.4 % (20.0-40.0); MEAN CELL VOLUME 83.9 fL (81.0-99.0); MEAN CORPUSCULAR HEMOGLOBIN 28.3 pg (27.0-31.0); MEAN CORPUSCULAR HGB CONC 33.7 g/dL (33.0-37.0); MEAN PLATELET VOLUME 9.2 fL (7.2-11.7); MONO # 0.8 K/uL (0.0-0.8); MONO % 9.9 % (0.0-10.0); NEUT # 5.4 K/uL (1.8-7.0); NEUT % 69.9 % (50.0-75.0); RBC 4.48 Mil/uL (3.80-5.20); RED CELL DISTRIBUTION WIDTH 14.2 % (11.5-14.5); WHITE BLOOD COUNT 7.8 K/uL (4.8-10.8)
[2017-10-21 07:43] LABS: PROTHROMBIN TIME 10.6 SECONDS (9.7-12.2)
[2017-10-21 07:44] LABS: ALB/GLOB RATIO 1.3 (1.0-2.1); ALBUMIN 3.8 g/dL (3.5-5.0); ALT/SGPT 22 U/L (9-52); AST/SGOT 23 U/L (14-36); BLOOD UREA NITROGEN 10 mg/dL (7-17); CALCIUM 9.2 mg/dl (8.6-10.4); GFR NON-AFRICAN AMERICAN > 60
[2017-10-21] MEDS: (Novolog) Insulin Aspart, Recombinant 100 u/ml 10 ml vial SC SCH ×4 (08:12→21:30)
[2017-10-21] MEDS ORDERED: Caffeine Citrated **INJ** 20 MG/ML IV ONE (08:44)
[2017-10-21] MEDS: Pantoprazole 40 mg EC Tab PO SCH ×2 (10:56→14:43)
[2017-10-21] MEDS: Enoxaparin 40 mg Syringe SC SCH (10:56)
[2017-10-21] MEDS: Multivitamin With Minerals Tab PO SCH ×2 (10:56→14:44)
--- NOTE | 2017-10-21 11:07 | CARD ---
APPROVED REPORT Date of service: 10/19/2017 EKG Measurement Heart [id number] <Conclusion> Normal sinus rhythm Right bundle branch block Abnormal ECG
[2017-10-21] MEDS: Sodium Chloride 0.45% 1,000 ML IV SCH (15:06)
[2017-10-21 15:49] VITALS: RESP 20
--- NOTE | 2017-10-21 15:57 | CP.PCM.PN ---
<Karthik Fitzgerald - Last Filed: 10/21/17 15:49> Subjective - Date & Time of Evaluation Date of Evaluation: 10/21/17 Time of Evaluation: 10:02 - Subjective Subjective: Cardiology Progress Note- Dr. Nicole's service Patient seen and examined in no acute distress. Patient was to go for cath procedure however requested for stress testing first. Patient denies chest pain , palpitations, dyspnea, nausea, vomiting or diarrhea at this time. Objective - Vital Signs/Intake and Output Vital Signs (last 24 hours): Temp Pulse Resp BP Pulse Ox 97.9 F 76 18 168/70 H 96 10/21/17 07:07 10/21/17 07:07 10/21/17 07:07 10/21/17 07:07 10/21/17 04:00 Intake and Output: 10/21/17 10/21/17 06:59 18:59 Output Total 500 Balance -500 - Medications Medications: Current Medications Acetaminophen (Tylenol 325mg Tab) 650 mg PO Q6H PRN PRN Reason: Pain, Mild (1-3) Aspirin (Aspirin Chewable) 81 mg PO DAILY [facility] Last Admin: 10/21/17 14:43 Dose: 81 mg Bupropion HCl (Wellbutrin Xl) 300 mg PO HS [facility] Last Admin: 10/20/17 21:04 Dose: 300 mg Dextrose (Dextrose 50% Inj) 0 ml IV STAT PRN; Protocol PRN Reason: Hypoglycemia Protocol Dextrose (Glutose 15) 0 gm PO ONCE PRN; Protocol PRN Reason: Hypoglycemia Protocol Enoxaparin Sodium (Lovenox) 40 mg SC DAILY [facility] Last Admin: 10/21/17 10:56 Dose: Not Given Ergocalciferol (Drisdol 50,000 Intl Units Cap) 1 cap PO QWK [facility] Last Admin: 10/20/17 10:54 Dose: 1 cap Glucagon (Glucagen Diagnostic Kit) 0 mg IM STAT PRN; Protocol PRN Reason: Hypoglycemia Protocol Dextrose (Dextrose 5% In Water 1000 Ml) 1,000 mls @ 0 mls/hr IV .Q0M PRN; Protocol; Per Protocol PRN Reason: Hypoglycemia Protocol Sodium Chloride (Sodium Chloride 0.45%) 1,000 mls @ 60 mls/hr IV .[id number] [facility] Stop: 10/21/17 23:59 Last Admin: 10/21/17 15:06 Dose: Not Given Insulin Aspart (Novolog) 0 unit SC ACHS [facility] PRN Reason: Protocol Last Admin: 10/21/17 13:19 Dose: Not Given Lamotrigine (Lamictal) 200 mg PO DAILY [facility] Last Admin: 10/21/17 14:43 Dose: 200 mg Levothyroxine Sodium (Synthroid) 75 mcg PO ACB [facility] Last Admin: 10/21/17 06:35 Dose: 75 mcg Lisinopril (Zestril) 20 mg PO DAILY [facility] Last Admin: 10/21/17 09:50 Dose: Not Given Metformin HCl (Glucophage) 500 mg PO BID [facility] Last Admin: 10/20/17 17:56 Dose: 500 mg Multivitamins/Minerals (Therapeutic-M Tab) 1 tab PO DAILY [facility] Last Admin: 10/21/17 14:44 Dose: 1 tab Pantoprazole Sodium (Protonix Ec Tab) 40 mg PO DAILY [facility] Last Admin: 10/21/17 14:43 Dose: 40 mg Sitagliptin Phosphate (Januvia) 50 mg PO BID [facility] Last Admin: 10/21/17 09:49 Dose: Not Given - Labs Labs: 10/21/17 07:14 10/21/17 07:14 PT 10.6 SECONDS (9.7-12.2) 10/21/17 07:14 INR 1.0 10/21/17 07:14 APTT 35 SECONDS (21-34) H 10/21/17 07:14 - Constitutional Appears: Non-toxic, No Acute Distress - Head Exam Head Exam: ATRAUMATIC, NORMAL INSPECTION - Eye Exam Eye Exam: EOMI Pupil Exam: NORMAL ACCOMODATION - ENT Exam ENT Exam: Mucous Membranes Moist - Neck Exam Neck Exam: Full ROM - Respiratory Exam Respiratory Exam: NORMAL BREATHING PATTERN. absent: Wheezes - Cardiovascular Exam Cardiovascular Exam: +S1, +S2. absent: JVD - GI/Abdominal Exam GI & Abdominal Exam: Soft, Normal Bowel Sounds - Extremities Exam Extremities Exam: Full ROM, Normal Capillary Refill - Back Exam Back Exam: Full ROM - Neurological Exam Neurological Exam: Alert, Awake - Psychiatric Exam Psychiatric exam: Normal Affect, Normal Mood - Skin Skin Exam: Dry, Normal Color, Warm Assessment and Plan - Assessment and Plan (Free Text) Assessment: Chest Pain - ROMIs x3 negative - F/U echo - EKG shows RBBB, NSR - ASA 81mg po daily - Stress Test today- follow up results - Will decide upon cath pending results - Will continue to follow Hypertension - Cont Lisinopril 20mg po daily - Monitor vitals Diabetes Mellitus - Hgb A1c 7.2 - Accucheck ACHS - ISS moderate - Continue home meds Elevated TSH -Hypothyroid -On Synthroid 75 mcg -May need medications increased. Management per primary. Prophylactic measure - PPI 40 mg PO daily - Lovenox SC - SCDs <Wilner Nicoel - Last Filed: 10/21/17 21:55> Objective - Vital Signs/Intake and Output Vital Signs (last 24 hours): Temp Pulse Resp BP Pulse Ox 97.3 F L 81 20 137/77 97 10/21/17 15:00 10/21/17 15:50 10/21/17 15:00 10/21/17 15:00 10/21/17 15:00 - Medications Medications: Current Medications Acetaminophen (Tylenol 325mg Tab) 650 mg PO Q6H PRN PRN Reason: Pain, Mild (1-3) Aspirin (Aspirin Chewable) 81 mg PO DAILY [facility] Last Admin: 10/21/17 14:43 Dose: 81 mg Bupropion HCl (Wellbutrin Xl) 300 mg PO HS [facility] Last Admin: 10/21/17 21:41 Dose: 300 mg Dextrose (Dextrose 50% Inj) 0 ml IV STAT PRN; Protocol PRN Reason: Hypoglycemia Protocol Dextrose (Glutose 15) 0 gm PO ONCE PRN; Protocol PRN Reason: Hypoglycemia Protocol Enoxaparin Sodium (Lovenox) 40 mg SC DAILY [facility] Last Admin: 10/21/17 10:56 Dose: Not Given Ergocalciferol (Drisdol 50,000 Intl Units Cap) 1 cap PO QWK [facility] Last Admin: 10/20/17 10:54 Dose: 1 cap Glucagon (Glucagen Diagnostic Kit) 0 mg IM STAT PRN; Protocol PRN Reason: Hypoglycemia Protocol Dextrose (Dextrose 5% In Water 1000 Ml) 1,000 mls @ 0 mls/hr IV .Q0M PRN; Protocol; Per Protocol PRN Reason: Hypoglycemia Protocol Sodium Chloride (Sodium Chloride 0.45%) 1,000 mls @ 60 mls/hr IV .[id number] [facility] Stop: 10/21/17 23:59 Last Admin: 10/21/17 15:06 Dose: Not Given Insulin Aspart (Novolog) 0 unit SC ACHS [facility] PRN Reason: Protocol Last Admin: 10/21/17 21:30 Dose: Not Given Lamotrigine (Lamictal) 200 mg PO DAILY [facility] Last Admin: 10/21/17 14:43 Dose: 200 mg Levothyroxine Sodium (Synthroid) 75 mcg PO ACB [facility] Last Admin: 10/21/17 06:35 Dose: 75 mcg Lisinopril (Zestril) 20 mg PO DAILY [facility] Last Admin: 10/21/17 09:50 Dose: Not Given Metformin HCl (Glucophage) 500 mg PO BID [facility] Last Admin: 10/20/17 17:56 Dose: 500 mg Multivitamins/Minerals (Therapeutic-M Tab) 1 tab PO DAILY [facility] Last Admin: 10/21/17 14:44 Dose: 1 tab Pantoprazole Sodium (Protonix Ec Tab) 40 mg PO DAILY [facility] Last Admin: 10/21/17 14:43 Dose: 40 mg Sitagliptin Phosphate (Januvia) 50 mg PO BID [facility] Last Admin: 10/21/17 17:47 Dose: 50 mg - Labs Labs: 10/21/17 07:14 10/21/17 07:14 PT 10.6 SECONDS (9.7-12.2) 10/21/17 07:14 INR 1.0 10/21/17 07:14 APTT 35 SECONDS (21-34) H 10/21/17 07:14 Assessment and Plan - Assessment and Plan (Free Text) Assessment: Patient seen and evaluated personally by ak Plan of care d/w the medical esthetician and as documented Stress test: Normal ECHO: Normal LV function Medical management. No further cardiac work up needed at this time
--- NOTE | 2017-10-21 17:59 | CARD ---
APPROVED REPORT Date of service: 10/21/2017 Protocol: PHARMACOLOGICAL STRESS Test Type: LEXISCAN Test Indications: CHEST PAIN,R/O ACS Medications: LIST SCAN Medical History: CHEST PAIN,R/O ACS Target HR: 146 bpm Resting ECG: ABNORMAL- RBBB Resting Heart Rate: 95 bpm Resting Blood Pressure: 142/82mmHg submaximum (85%): 124 bpm TEST SUMMARY [id number]/[id number]. INFUSIONDOSE 100:[id number]/82.0. [id number]/68.0. PROCEDURE Pharmacologic stress testing was performed using 0.4mg per 5ml of regadenoson given intravenously over 7-10 seconds. POST EXERCISE Reason for Termination: Protocol Completed Target HR: No Max HR: 97 bpm 82% of Maximum Predicted HR: 146 bpm Exercise duration: 00:30 min:sec, 0 Stage Exercise capacity: 1.0METs Max Blood Pressure: 162/68mmHg Blood Pressure response to exercise: normal resting BP - appropriate response Heart Rate response to exercise: appropriate Chest Pain: No, none Angina index: 0 Arrhythmia: No, none ST Change: Yes, Depression upsloping Deviation: 0 mm INTERPRETATION Stress EKG Conclusion: NUCLEAR REPORT TO FOLLOW EXAM: Myocardial Perfusion STRESS/REST Imaging Protocol The imaging protocol used to acquire images was Rest Tc-99m/stress Tc-99m 1 day Stress Spect myocardial perfusion imaging was performed in supine position 41 minutes following the injection of 12.6 mCi of Tc-99 Myoview. Gated Rest Spect was performed 41 minutes after intravenous 31.4 mCi Tc-99 Myoview injection. The images were gated to evaluate regional wall motion and calculate ventricular ejection fraction.Images were reconstructed using backfilter projection method in short horizontal and verticle long axis. Spect slices were generated. RESTING DATA EDV54.50oeWF0.00L/min ESV14.00mlMyocardial Mass97.00g Av. Heart Rate76.00bpm EF74.00% STRESS DATA EDV50.04mtKB0.60L/min ESV9.00mlMyocardial Mass95.00g EF82.00% Regional WT score at stress:0.00 Regional WM score at stress:0.00 Summed WT score at stress:3.00 Av. Heart Rate89.00bpmSummed WM score at stress:1.00 LV Perf. Quant 17 Seg. SSS3.00 17 Seg. SRS3.00 17 Seg. SDS1.00 Stress Defect Extent (% LAD)0.00Rest Defect Extent (% LAD)1.30Rev. Defect Extent (% LAD)0.00 Stress Defect Extent (% LCX)36.30Rest Defect Extent (% LCX)20.00Rev. Defect Extent (% LCX)2.50 Stress Defect Extent (% RCA)0.00Rest Defect Extent (% RCA)0.00Rev. Defect Extent (% RCA)0.00 Stress Defect Extent (% TAMERA)7.20Rest Defect Extent (% TAMERA)6.50Rev. Defect Extent (% TAMERA)0.90 Other Information Quality:Good IMPRESSION Normal Myocardial Perfusion exercise stress study Left Ventricle LV Function:Left ventricle systolic function is normal. The Ejection Fraction is >55%. Conclusion 1. Normal Lexiscan Nuclear stress test. Normal EF
--- NOTE | 2017-10-21 19:40 | CP.PCM.PN ---
<Magaly Michelle Y - Last Filed: 10/21/17 19:33> Subjective - Date & Time of Evaluation Date of Evaluation: 10/21/17 Time of Evaluation: 16:45 - Subjective Subjective: PGY-1 Medicine Progress note for Dr. Peck Patient was seen and examined OOB in chair with daughter today in no acute distress. Nurse reports no overnight events. Patient reports no new issues. Refused catherization, performed chemical stress test. Denies current chest pain , shortness of breath, abdominal pain, difficulty voiding, dizziness, lightheadedness, nausea, vomiting. Objective - Vital Signs/Intake and Output Vital Signs (last 24 hours): Temp Pulse Resp BP Pulse Ox 97.3 F L 81 20 137/77 97 10/21/17 15:00 10/21/17 15:50 10/21/17 15:00 10/21/17 15:00 10/21/17 15:00 - Medications Medications: Current Medications Acetaminophen (Tylenol 325mg Tab) 650 mg PO Q6H PRN PRN Reason: Pain, Mild (1-3) Aspirin (Aspirin Chewable) 81 mg PO DAILY [facility] Last Admin: 10/21/17 14:43 Dose: 81 mg Bupropion HCl (Wellbutrin Xl) 300 mg PO HS [facility] Last Admin: 10/20/17 21:04 Dose: 300 mg Dextrose (Dextrose 50% Inj) 0 ml IV STAT PRN; Protocol PRN Reason: Hypoglycemia Protocol Dextrose (Glutose 15) 0 gm PO ONCE PRN; Protocol PRN Reason: Hypoglycemia Protocol Enoxaparin Sodium (Lovenox) 40 mg SC DAILY [facility] Last Admin: 10/21/17 10:56 Dose: Not Given Ergocalciferol (Drisdol 50,000 Intl Units Cap) 1 cap PO QWK [facility] Last Admin: 10/20/17 10:54 Dose: 1 cap Glucagon (Glucagen Diagnostic Kit) 0 mg IM STAT PRN; Protocol PRN Reason: Hypoglycemia Protocol Dextrose (Dextrose 5% In Water 1000 Ml) 1,000 mls @ 0 mls/hr IV .Q0M PRN; Protocol; Per Protocol PRN Reason: Hypoglycemia Protocol Sodium Chloride (Sodium Chloride 0.45%) 1,000 mls @ 60 mls/hr IV .[id number] [facility] Stop: 10/21/17 23:59 Last Admin: 10/21/17 15:06 Dose: Not Given Insulin Aspart (Novolog) 0 unit SC ACHS [facility] PRN Reason: Protocol Last Admin: 10/21/17 17:05 Dose: Not Given Lamotrigine (Lamictal) 200 mg PO DAILY [facility] Last Admin: 10/21/17 14:43 Dose: 200 mg Levothyroxine Sodium (Synthroid) 75 mcg PO ACB [facility] Last Admin: 10/21/17 06:35 Dose: 75 mcg Lisinopril (Zestril) 20 mg PO DAILY [facility] Last Admin: 10/21/17 09:50 Dose: Not Given Metformin HCl (Glucophage) 500 mg PO BID [facility] Last Admin: 10/20/17 17:56 Dose: 500 mg Multivitamins/Minerals (Therapeutic-M Tab) 1 tab PO DAILY [facility] Last Admin: 10/21/17 14:44 Dose: 1 tab Pantoprazole Sodium (Protonix Ec Tab) 40 mg PO DAILY [facility] Last Admin: 10/21/17 14:43 Dose: 40 mg Sitagliptin Phosphate (Januvia) 50 mg PO BID [facility] Last Admin: 10/21/17 17:47 Dose: 50 mg - Labs Labs: 10/21/17 07:14 10/21/17 07:14 PT 10.6 SECONDS (9.7-12.2) 10/21/17 07:14 INR 1.0 10/21/17 07:14 APTT 35 SECONDS (21-34) H 10/21/17 07:14 - Constitutional Appears: Non-toxic, No Acute Distress - Head Exam Head Exam: ATRAUMATIC, NORMOCEPHALIC - Eye Exam Eye Exam: EOMI, Normal appearance - ENT Exam ENT Exam: Mucous Membranes Moist, Normal Exam - Respiratory Exam Respiratory Exam: Clear to Ausculation Bilateral, NORMAL BREATHING PATTERN. absent: Rales, Rhonchi, Wheezes - Cardiovascular Exam Cardiovascular Exam: REGULAR RHYTHM, +S1, +S2 Additional comments: Aortic stenosis - GI/Abdominal Exam GI & Abdominal Exam: Soft, Normal Bowel Sounds. absent: Tenderness - Extremities Exam Extremities Exam: Normal Capillary Refill. absent: Pedal Edema, Tenderness Additional comments: peripheral access in L AC and R hand - Neurological Exam Neurological Exam: Alert, Awake, Normal Gait, Oriented x3 - Psychiatric Exam Psychiatric exam: Normal Affect, Normal Mood - Skin Skin Exam: Dry, Intact, Normal Color Assessment and Plan - Assessment and Plan (Free Text) Assessment: 72yoF with PMH HTN, DM, HLD, bipolar, hypothyroidism, anxiety, depression, tinnitus admitted for intermittent chest pain, r/o ACS Plan: 1) Chest Pain r/o ACS - CXR: neg - ROMIs and EKGs negative x3 - EKG shows RBBB, non acute - BNP 28.0, CK 150 - TGs 187, Cholesterol 208, LDL 112, HDL 41 , Hgb A1c 7.2 - ASA 81mg po daily - Cardio consulted: Dr. Nicole - aisha appreciated Myocardial Perfusion pharmacologic stress study: EF > 55%, normal Lexiscan Nuclear stress test Hypertension - Cont Lisinopril 20mg po daily - Monitor vitals Diabetes - Accucheck ACHS - ISS moderate - hypoglycemia protocol - Januvia 50mg po bid - Metformin 500mg po bid Hypothyroidism - TSH 5.04 - Free T4 0.76 - currently on Levothyroxine 75mcg po ACB - although patient is asymptomatic at this time, will discuss w/ Dr. Peck to increase dose to 100mcg Hx Bipolar, anxiety, depression - denies current SI, HI, hallucinations - Cont bupropion 300mg po HS - Cont Lamictal 200mg po daily Vitamin D deficiency - Cont home Ergocalciferol - NF -> Ergocalciferol 50,000 1 cap po q7d PPx - GI: Protonix 40mg po daily - DVT: Lovenox 40mg sc daily, SCDs - Home Pharbetol (acetaminophen) 500mg po prn for pain - MVI - Heart Healthy Diet Dispo: Patient is possibly discharge tomorrow. Will need to discuss with Dr. Peck to increase leovthyroxine to 100mcg as patient Free T4 is 0.76 d/w Dr. Liv Michelle PGY-1 <Checo Peck Jr. - Last Filed: 10/23/17 13:21> Objective - Vital Signs/Intake and Output Vital Signs (last 24 hours): Temp Pulse Resp BP Pulse Ox 97.3 F L 73 20 116/71 99 10/22/17 15:00 10/22/17 15:00 10/22/17 15:00 10/22/17 15:00 10/22/17 15:00 - Labs Labs: 10/22/17 07:00 10/22/17 07:00 PT 10.6 SECONDS (9.7-12.2) 10/21/17 07:14 INR 1.0 10/21/17 07:14 APTT 35 SECONDS (21-34) H 10/21/17 07:14 Attending/Attestation - Attestation I have personally seen and examined this patient.: Yes I have fully participated in the care of the patient.: Yes I have reviewed all pertinent clinical information, including history, physical exam and plan: Yes Notes (Text): 10/23/17 13:21 Reviewed resident note. Agree with findings and plan.
--- NOTE | 2017-10-21 19:56 | CARD ---
APPROVED REPORT Date of service: 10/21/2017 EXAM: Two-dimensional and M-mode echocardiogram with Doppler and color Doppler. Other Information Quality : TDSRhythm : INDICATION Aortic Valve Disease Chest Pain 2D DIMENSIONS IVSd1.2 (0.7-1.1cm)LVDd3.5 (3.9-5.9cm) PWd1.2 (0.7-1.1cm)LVDs2.0 (2.5-4.0cm) FS (%) 44.5 %LVEF (%)76.7 (>50%) M-Mode DIMENSIONS Left Atrium (MM)3.39 (2.5-4.0cm)IVSd1.14 (0.7-1.1cm) Aortic Root3.11 (2.2-3.7cm)LVDd4.32 (4.0-5.6cm) Aortic Cusp Exc.1.87 (1.5-2.0cm)PWd1.02 (0.7-1.1cm) FS (%) 49 %LVDs2.19 (2.0-3.8cm) LVEF (%)70 (>50%) Aortic Valve AoV Peak Xqgerwfh827.7cm/Raoul Peak GR.15mmHg Mitral Valve MV E Rchvyrgq68.1cm/sMV A Xgwcgndo02.8cm/sE/A ratio0.7 TDI E/Lateral E'0.0E/Medial E'0.0 LEFT VENTRICLE The left ventricle is normal size. There is normal left ventricular wall thickness. The left ventricular function is normal. The left ventricular ejection fraction is within the normal range. No regional wall motion abnormalities noted. Transmitral Doppler flow pattern is Grade I-abnormal relaxation pattern.l. No left ventricle thrombus noted on this study. There is no ventricular septal defect visualized. There is no left ventricular aneurysm. There is no mass noted in the left ventricle. RIGHT VENTRICLE The right ventricle is normal size. There is normal right ventricular wall thickness. The right ventricular systolic function is normal. ATRIA The left atrium size is normal. The right atrium size is normal. The interatrial septum is intact with no evidence for an atrial septal defect. AORTIC VALVE The aortic valve is normal in structure and function. No aortic regurgitation is present. There is no aortic valvular stenosis. There is no aortic valvular vegetation. MITRAL VALVE The mitral valve is normal in structure and function. There is no evidence of mitral valve prolapse. There is no mitral valve stenosis. There is no mitral valve regurgitation noted. TRICUSPID VALVE The tricuspid valve is normal in structure and function. There is no tricuspid valve regurgitation noted. There is no tricuspid valve prolapse or vegetation. There is no tricuspid valve stenosis. PULMONIC VALVE The pulmonary valve is normal in structure and function. There is no pulmonic valvular regurgitation. There is no pulmonic valvular stenosis. GREAT VESSELS The aortic root is normal in size. The ascending aorta is normal in size. The pulmonary artery is normal. The IVC is normal in size and collapses >50% with inspiration. PERICARDIAL EFFUSION The pericardium appears normal. There is no pleural effusion. <Conclusion> The left ventricular function is normal. The left ventricular ejection fraction is within the normal range. No regional wall motion abnormalities noted.
[2017-10-21] MEDS: buPROPion 150 mg/24 Hours XL Tab PO SCH (21:41)
[2017-10-22] MEDS: Levothyroxine 75 MCG TAB PO SCH (06:36)
[2017-10-22 07:25] LABS: BASO % 0.6 % (0.0-2.0); EOS # 0.2 K/uL (0.0-0.7); EOS % 2.4 % (0.0-4.0); HEMOGLOBIN 12.1 g/dL (11.0-16.0); LYMPH # 1.1 K/uL (1.0-4.3); LYMPH % 16.1 % (20.0-40.0); MEAN CELL VOLUME 83.7 fL (81.0-99.0); MEAN CORPUSCULAR HEMOGLOBIN 28.4 pg (27.0-31.0); MEAN PLATELET VOLUME 9.2 fL (7.2-11.7); MONO # 0.6 K/uL (0.0-0.8); MONO % 8.7 % (0.0-10.0); NEUT # 4.8 K/uL (1.8-7.0); NEUT % 72.2 % (50.0-75.0); NRBC % 0.1 % (0.0-2.0); RBC 4.25 Mil/uL (3.80-5.20); RED CELL DISTRIBUTION WIDTH 14.1 % (11.5-14.5); WHITE BLOOD COUNT 6.6 K/uL (4.8-10.8)
[2017-10-22 07:51] LABS: ALB/GLOB RATIO 1.3 (1.0-2.1); ALBUMIN 3.8 g/dL (3.5-5.0); ALT/SGPT 23 U/L (9-52); AST/SGOT 22 U/L (14-36); BLOOD UREA NITROGEN 10 mg/dL (7-17); CALCIUM 9.6 mg/dl (8.6-10.4); GFR NON-AFRICAN AMERICAN > 60
[2017-10-22] MEDS: (Novolog) Insulin Aspart, Recombinant 100 u/ml 10 ml vial SC SCH ×2 (07:55→11:33)
[2017-10-22] MEDS: Multivitamin With Minerals Tab PO SCH (10:09)
[2017-10-22] MEDS: Pantoprazole 40 mg EC Tab PO SCH (10:09)
[2017-10-22] MEDS: Enoxaparin 40 mg Syringe SC SCH (10:10)
--- NOTE | 2017-10-22 14:39 | CP.PCM.DIS ---
Provider - Provider Date of Admission: 10/20/17 19:47 Attending physician: Checo Peck Jr, MD Consults: Cardio- Dr. Nicole Time Spent in preparation of Discharge (in minutes): 29 Hospital Course - Lab Results Lab Results: Most Recent Lab Values WBC 6.6 K/uL (4.8-10.8) 10/22/17 07:00 RBC 4.25 Mil/uL (3.80-5.20) 10/22/17 07:00 Hgb 12.1 g/dL (11.0-16.0) 10/22/17 07:00 Hct 35.6 % (34.0-47.0) 10/22/17 07:00 MCV 83.7 fL (81.0-99.0) 10/22/17 07:00 MCH 28.4 pg (27.0-31.0) 10/22/17 07:00 MCHC 34.0 g/dL (33.0-37.0) 10/22/17 07:00 RDW 14.1 % (11.5-14.5) 10/22/17 07:00 Plt Count 208 K/uL (130-400) 10/22/17 07:00 MPV 9.2 fL (7.2-11.7) 10/22/17 07:00 Neut % (Auto) 72.2 % (50.0-75.0) 10/22/17 07:00 Lymph % (Auto) 16.1 % (20.0-40.0) L 10/22/17 07:00 [place] % (Auto) 8.7 % (0.0-10.0) 10/22/17 07:00 Eos % (Auto) 2.4 % (0.0-4.0) 10/22/17 07:00 Baso % (Auto) 0.6 % (0.0-2.0) 10/22/17 07:00 Neut # (Auto) 4.8 K/uL (1.8-7.0) 10/22/17 07:00 Lymph # (Auto) 1.1 K/uL (1.0-4.3) 10/22/17 07:00 [place] # (Auto) 0.6 K/uL (0.0-0.8) 10/22/17 07:00 Eos # (Auto) 0.2 K/uL (0.0-0.7) 10/22/17 07:00 Baso # (Auto) 0.0 K/uL (0.0-0.2) 10/22/17 07:00 PT 10.6 SECONDS (9.7-12.2) 10/21/17 07:14 INR 1.0 10/21/17 07:14 APTT 35 SECONDS (21-34) H 10/21/17 07:14 Sodium 138 mmol/L (132-148) 10/22/17 07:00 Potassium 4.4 mmol/L (3.6-5.2) 10/22/17 07:00 Chloride 102 mmol/L (98-107) 10/22/17 07:00 Carbon Dioxide 25 mmol/L (22-30) 10/22/17 07:00 Anion Gap 16 (10-20) 10/22/17 07:00 BUN 10 mg/dL (7-17) 10/22/17 07:00 Creatinine 0.7 mg/dL (0.7-1.2) 10/22/17 07:00 Est GFR ( Amer) > 60 10/22/17 07:00 Est GFR (Non-Af Amer) > 60 10/22/17 07:00 POC Glucose (mg/dL) 112 mg/dL (65-110) H 10/22/17 11:02 Random Glucose 187 mg/dL (65-105) H 10/22/17 07:00 Hemoglobin A1c 7.2 % (4.2-6.5) H 10/20/17 06:35 Calcium 9.6 mg/dl (8.6-10.4) 10/22/17 07:00 Phosphorus 3.8 mg/dL (2.5-4.5) 10/22/17 07:00 Magnesium 1.9 mg/dL (1.6-2.3) 10/22/17 07:00 Total Bilirubin 0.3 mg/dL (0.2-1.3) 10/22/17 07:00 AST 22 U/L (14-36) 10/22/17 07:00 ALT 23 U/L (9-52) 10/22/17 07:00 Alkaline Phosphatase 80 U/L (38-126) 10/22/17 07:00 Total Creatine Kinase 149 U/L (30-135) H 10/20/17 02:23 CK-MB (Mass) 2.26 ng/mL (0.0-3.38) 10/20/17 02:23 Troponin I < 0.0120 ng/mL (0.00-0.120) 10/20/17 02:23 NT-Pro-B Natriuret Pep 28.0 pg/mL (0-900) 10/19/17 14:00 Total Protein 6.7 g/dL (6.3-8.3) 10/22/17 07:00 Albumin 3.8 g/dL (3.5-5.0) 10/22/17 07:00 Globulin 2.9 gm/dL (2.2-3.9) 10/22/17 07:00 Albumin/Globulin Ratio 1.3 (1.0-2.1) 10/22/17 07:00 Triglycerides 187 mg/dL (0-149) H 10/20/17 06:35 Cholesterol 208 mg/dL (0-199) H 10/20/17 06:35 LDL Cholesterol Direct 112 mg/dL (0-129) 10/20/17 06:35 HDL Cholesterol 41 mg/dL (30-70) 10/20/17 06:35 Free T4 0.76 ng/dL (0.78-2.19) L 10/20/17 06:35 TSH 3rd Generation 5.04 mIU/L (0.46-4.68) H 10/19/17 20:17 - Hospital Course Hospital Course: Upon hospital admission: Ms. Juarez is a 72 year old female with PMH hypertension, hyperlipidemia, diabetes, hypothyroidism, anxiety, depression, bipolar with multiple psychiatric hospitalizations, osteoarthritis was admitted today for chest pain while going though her pre-op checklist for routine colonoscopy. She first felt the stabbing pain in her left upper chest when getting dressed for leaving the house. The lightheadedness made her sit down, and it went away in less than 10 minutes with just rest. She felt it again about an hour later at the colonoscopy site, and it similarly went away with rest. She has not felt the pain again since then. It did not radiate and was a 10/10 on the pain scale. Denies headache, diaphoresis, dizziness, syncope, blurry vision, double vision, shortness of breath, nausea, vomiting. ED course: Tylenol, Aspirin, CXR PMH: HTN, HLD, DM, hypothyroidism, anxiety, depression, bipolar, OA PSxH: bilateral carpal tunnel release, L ear surgery for impaired hearing, hemorrhoidectomy, thyroid bx, robotic assisted R sacrocolpopexy and transvaginal sling FamHx: Mother - DM, unknown cause. Father - DC 60 SocHx: quit smoking <1year ago, 1 ppd smoker. Denies alcohol, denies drugs. Lives alone at senior citizen living. Worked doin basic office work/filing/ typing. Meds: MVI, VitD, Zestril, Synthroid, Pharbetol, Janumet, Wellbutrin, Lamictal All: olanzapine Full Code Proxy: Daughter Teresa Caba [phone] PMD: Latisha [place] - byron calls every 4-6 weeks During hospital course, the patient was evaluated and treated for the following : 1) Chest Pain r/o ACS worked up with CXR: neg, ROMIs and EKGs negative x3, EKG shows RBBB, non acute, BNP 28.0, CK 150, TGs 187, Cholesterol 208, LDL 112, HDL 41. Cardio consulted: Dr. Nicole was consulted. patient refused cardiac cath. Myocardial Perfusion pharmacologic stress study: EF > 55%, normal Lexiscan Nuclear stress test 2. Hypothyroidism with readings of TSH 5.04 and Free T4 0.76. Currently on Levothyroxine 75mcg po ACB. Patient was increased to 100mcg prior to discharge. She remains grossly asymptomatic. The patient did well during this admission, responded well to treatment, and was deemed stable for discharge. Upon hospital discharge, the patient was provided with the following instructions: Patient is stable for discharge per Dr. Peck. Patient should resume all medications as outlined in this document. Additionally, patient should take the new medications listed below (scripts provided). 1. Please make an appointment and follow up with your Primary Doctor within one week of discharge. Your thyroid levels were TSH 5.04 and Free T4 0.76. Please stop Synthroid 75mcg and start Synthroid 100mcg once daily. 2. The results of your cardiac test are as follows: Myocardial Perfusion pharmacologic stress study: EF > 55%, normal Lexiscan Nuclear stress test. You refused to have a cardiac cath. Patient should return to ED immediately if symptoms return or worsen. Instructions discussed with patient who understood and agreed. Newly prescribed medications: Increased to Synthroid 100mcg PO qD #30 Start ASA 81mg PO qD (may purchase from [employer] OTC). This is a summary of the patient's hospital admission, see chart for comprehensive detail. - Date & Time of H&P Date of H&P: 10/19/17 Time of H&P: 22:38 Discharge Exam - Additional Findings Additional findings: - Constitutional Appears: Non-toxic, No Acute Distress - Head Exam Head Exam: ATRAUMATIC, NORMOCEPHALIC - Eye Exam Eye Exam: EOMI, Normal appearance - ENT Exam ENT Exam: Mucous Membranes Moist, Normal Exam - Respiratory Exam Respiratory Exam: Clear to Ausculation Bilateral, NORMAL BREATHING PATTERN. absent: Rales, Rhonchi, Wheezes - Cardiovascular Exam Cardiovascular Exam: REGULAR RHYTHM, +S1, +S2 - GI/Abdominal Exam GI & Abdominal Exam: Soft, Normal Bowel Sounds. absent: Tenderness - Extremities Exam Extremities Exam: Normal Capillary Refill. absent: Pedal Edema, Tenderness - Neurological Exam Neurological Exam: Alert, Awake, Normal Gait, Oriented x3 - Psychiatric Exam Psychiatric exam: Normal Affect, Normal Mood - Skin Skin Exam: Dry, Intact, Normal Color Discharge Plan - Discharge Medications Prescriptions: Levothyroxine [Synthroid] 100 mcg PO ACB #30 tab - Follow Up Plan Condition: STABLE Disposition: HOME/ ROUTINE Instructions: Chest Pain, Chest Pain (DC), Aspirin, Levothyroxine Additional Instructions: Patient is stable for discharge per Dr. Peck. Patient should resume all medications as outlined in this document. Additionally, patient should take the new medications listed below (scripts provided). 1. Please make an appointment and follow up with your Primary Doctor within one week of discharge. Your thyroid levels were TSH 5.04 and Free T4 0.76. Please stop Synthroid 75mcg and start Synthroid 100mcg once daily. 2. The results of your cardiac test are as follows: Myocardial Perfusion pharmacologic stress study: EF > 55%, normal Lexiscan Nuclear stress test. You refused to have a cardiac cath. Patient should return to ED immediately if symptoms return or worsen. Instructions discussed with patient who understood and agreed. Newly prescribed medications: Increased to Synthroid 100mcg PO qD #30 Start ASA 81mg PO qD (may purchase from [facility] OTC). Referrals: Checo Peck Jr., MD [Medical Doctor] -
[2017-10-22 16:19] VITALS: BP 116/71; PULSE 73; TEMP 97.3; O2SAT 99
== END 2017-10-22 16:45 | disposition home or self-care (01) | DRG 313 ==
LOC: C.ER 10:46 → C.9E 16:01 → C.6T 17:07 → OBSVTOIN 10-20 19:47
PROVIDERS: ADMIT Internal Medicine; ATTEND Internal Medicine
DX: R07.9 Chest pain, unspecified (principal); E03.9 Hypothyroidism, unspecified; E78.00 Pure hypercholesterolemia, unspecified; F31.9 Bipolar disorder, unspecified; I10 Essential (primary) hypertension; E55.9 Vitamin D deficiency, unspecified; I35.0 Nonrheumatic aortic (valve) stenosis; E11.9 Type 2 diabetes mellitus without complications; F41.9 Anxiety disorder, unspecified; Z87.891 Personal history of nicotine dependence; Z79.4 Long term (current) use of insulin

== ENCOUNTER 2017-11-30 09:11 | Day surgery (SDC) | payer MEDICARE ==
--- NOTE | 2017-11-30 11:49 | CP.SDSHP ---
Same Day Surgery H & P - History Proposed Procedure: colonoscopy Pre-Op Diagnosis: history of colon polyps - Previous Medical/Surgical History Cardiac: Hypertension Endocrine/Metabolic: Diabetes - Allergies Allergies: Allergies olanzapine [From Zyprexa] Allergy (Intermediate, Verified 11/30/17 09:55) RASH polen Allergy (Intermediate, Uncoded 10/19/17 09:18) CONGESTION - Physical Exam General Appearance: NAD Vital Signs: Vital Signs 11/30/17 10:04 Temperature 97.3 F L Pulse Rate 97 H Respiratory 18 Rate Blood Pressure 150/88 O2 Sat by Pulse 99 Oximetry Mental Status: Alert & Oriented x3 Neuro: WNL Heart: WNL Lungs: WNL GI: WNL - {Optional Preform as Required} Abdomen: WNL - Impression Pt. Evaluated Today:Candidate for Anesthesia & Procedure: Yes - Date & Time Date: 11/30/17 Time: 11:49 Short Stay Discharge - Short Stay Discharge Admitting Diagnosis/Reason for Visit: PERSONAL HISTORY OF COLONIC POLYPS Disposition: HOME/ ROUTINE
[2017-11-30] MEDS ORDERED: Propofol 10 mg/ml Inj (20 ML) ONE ×3 (11:51→12:23)
[2017-11-30 13:22] VITALS: TEMP 97
[2017-11-30 13:24] VITALS: O2SAT 99
[2017-11-30 13:31] VITALS: BP 150/75; PULSE 88; RESP 19
== END 2017-11-30 13:30 | disposition home or self-care (01) ==
LOC: C.ENDO 09:11
PROVIDERS: ATTEND Internal Medicine Gastroenterology
DX: Z86.010 Personal history of colon polyps (principal); Z12.11 Encounter for screening for malignant neoplasm of colon; D12.5 Benign neoplasm of sigmoid colon; K57.90 Diverticulosis of intestine, part unspecified, without perforation or abscess without bleeding
CPT/HCPCS: 45380; 45384; 82948; 88305; J2001; J2405; J2704; J2765

== ENCOUNTER 2018-06-02 08:57 | Outpatient (CLI) | payer MEDICARE | END 2018-06-02 08:58 | disposition home or self-care (01) | LOC: C.LAB 08:57 | DX: E11.65 Type 2 diabetes mellitus with hyperglycemia (principal); E78.2 Mixed hyperlipidemia; E03.0 Congenital hypothyroidism with diffuse goiter; E55.0 Rickets, active ==

== ENCOUNTER 2018-07-12 01:19 | Emergency (ER) | payer MEDICARE ==
[2018-07-12 01:20] VITALS: BMI 29.5
[2018-07-12] MEDS ORDERED: Sodium Chloride 0.9% 500 ML IV ONE (01:45)
[2018-07-12] MEDS ORDERED: Sodium Chloride 0.9% 1,000 ML ONE (01:53)
[2018-07-12 02:17] LABS: BASO # 0.1 K/uL (0.0-0.2); BASO % 0.7 % (0.0-2.0); EOS # 0.2 K/uL (0.0-0.7); EOS % 1.5 % (0.0-4.0); HEMOGLOBIN 11.8 g/dL (11.0-16.0); LYMPH # 1.1 K/uL (1.0-4.3); LYMPH % 9.7 % (20.0-40.0); MEAN CELL VOLUME 83.6 fL (81.0-99.0); MEAN CORPUSCULAR HEMOGLOBIN 27.8 pg (27.0-31.0); MEAN CORPUSCULAR HGB CONC 33.3 g/dL (33.0-37.0); MEAN PLATELET VOLUME 9.6 fL (7.2-11.7); MONO # 0.8 K/uL (0.0-0.8); MONO % 7.4 % (0.0-10.0); NEUT % 80.7 % (50.0-75.0); PLATELET COUNT 189 K/uL (130-400); RBC 4.24 Mil/uL (3.80-5.20); RED CELL DISTRIBUTION WIDTH 14.5 % (11.5-14.5)
[2018-07-12 02:26] LABS: WHITE BLOOD COUNT 11.1 K/uL (4.8-10.8)
[2018-07-12 02:34] LABS: ALB/GLOB RATIO 1.6 (1.0-2.1); ALBUMIN 4.2 g/dL (3.5-5.0); ALT/SGPT 22 U/L (9-52); AST/SGOT 23 U/L (14-36); BLOOD UREA NITROGEN 16 mg/dL (7-17); CALCIUM 9.3 mg/dl (8.6-10.4); GFR NON-AFRICAN AMERICAN > 60
--- NOTE | 2018-07-12 02:51 | C.PDOC ---
History Of Present Illness 72 year old female brought in vis EMS from home for nausea and several episodes of vomiting since midnight. Denies abdominal pain, diarrhea, dysuria, chest pain, or SOB. She notes symptoms started after she took aricept for the first time tonight, given to her by her neurologist Dr. De Jesus. Time Seen by Provider: 07/12/18 01:35 Chief Complaint (Nursing): GI Problem History Per: Patient History/Exam Limitations: no limitations Onset/Duration Of Symptoms: Hrs Current Symptoms Are (Timing): Still Present Context: Other (Started new medication) Quality Of Discomfort: Unable To Describe Associated Symptoms: denies: Diarrhea, Chest Pain, Urinary Symptoms, Other (SOB) Exacerbating Factors: None Alleviating Factors: None Recent travel outside of the [place]: No Abnormal Vaginal Bleeding: No Past Medical History Reviewed: Historical Data, Nursing Documentation, Vital Signs Vital Signs: Last Vital Signs Temp 97.7 F 07/12/18 01:29 Pulse 82 07/12/18 01:29 Resp 15 07/12/18 01:29 BP 192/70 H 07/12/18 01:29 Pulse Ox 96 07/12/18 01:29 Primary Care Provider: Non [facility] Provider, - Medical History PMH: Anxiety, Arthritis (right knee), Bipolar Disorder, Colonic Polyps, Depression, HTN, Hypercholesterolemia, Hypothyroidism Denies: Diabetes, Hepatitis, Chronic Kidney Disease - [facility] Procedures DRAINAGE OF BLADDER WITH DRAINAGE DEVICE, VIA OPENING (02/27/16) INSERTION OF BIOLOGICAL GRAFT (09/24/13) LAPAROSCOPIC ROBOTIC ASSISTED PROCEDURE (09/24/13) VAGINAL SUSPENSION AND FIXATION WITH GRAFT OR PROSTHESIS (09/24/13) Family History: States: Unknown Family Hx - Social History Hx Alcohol Use: No Hx Substance Use: No - Immunization History Hx Tetanus Toxoid Vaccination: No Hx Influenza Vaccination: No Hx Pneumococcal Vaccination: Yes Review Of Systems Except As Marked, All Systems Reviewed And Found Negative. Gastrointestinal: Positive for: Nausea, Vomiting Physical Exam - Physical Exam Appears: Non-toxic Skin: Normal Color, Warm Head: Atraumatic, Normacephalic Eye(s): bilateral: Normal Inspection Oral Mucosa: Moist Neck: Normal, Supple Chest: Symmetrical, No Tenderness Cardiovascular: Rhythm Regular Respiratory: Normal Breath Sounds, No Rales, No Rhonchi, No Wheezing Gastrointestinal/Abdominal: Soft, No Tenderness Neurological/Psych: Oriented x3, Normal Speech ED Course And Treatment - Laboratory Results Result Diagrams: 07/12/18 02:14 07/12/18 02:14 Lab Results: Total Bilirubin 0.3 mg/dL (0.2-1.3) 07/12/18 02:14 AST 23 U/L (14-36) 07/12/18 02:14 ALT 22 U/L (9-52) 07/12/18 02:14 Alkaline Phosphatase 85 U/L (38-126) 07/12/18 02:14 Total Protein 6.7 g/dL (6.3-8.3) 07/12/18 02:14 Albumin 4.2 g/dL (3.5-5.0) 07/12/18 02:14 Globulin 2.6 gm/dL (2.2-3.9) 07/12/18 02:14 Albumin/Globulin Ratio 1.6 (1.0-2.1) 07/12/18 02:14 O2 Sat by Pulse Oximetry: 96 (Room air) Pulse Ox Interpretation: Normal Progress Note: Blood work and UA ordered. IV fluids and zofran administered. Disposition Counseled Patient/Family Regarding: Studies Performed, Diagnosis, Need For Followup, Rx Given - Disposition Referrals: Augustine De Jesus MD [Staff Provider] - Jesse De Jesus MD [Staff Provider] - Disposition: HOME/ ROUTINE Disposition Time: 04:40 Condition: STABLE Additional Instructions: FOLLOW UP WITH DR DE JESUS WITHIN 1 WEEK, LET HIM KNOW YOU DID NOT TOLERATE ARICEPT WELL USE NAUSEA MEDICATION NEEDED RETURN TO ER IF SYMPTOMS WORSEN Prescriptions: Ondansetron ODT [Zofran ODT] 1 odt PO BID PRN #15 odt PRN Reason: Nausea/Vomiting Instructions: Adverse Drug Reactions, Adult (DC) Forms: [employer] ([employer]) Print Language: KINYARWANDA - Clinical Impression Clinical Impression: Nausea & vomiting, Medication side effects - Scribe Statement The provider has reviewed the documentation as recorded by the Scribe Aaron Waddell All medical record entries made by the Scribe were at my direction and persona lly dictated by me. I have reviewed the chart and agree that the record accurately reflects my personal performance of the history, physical exam, medical decision making, and the department course for this patient. I have also personally directed, reviewed, and agree with the discharge instructions and disposition.
[2018-07-12 03:04] LABS: SQUAMOUS EPITHIAL 1 /hpf (0-5); URINE BILIRUBIN NEGATIVE (NEGATIVE); URINE BLOOD NEGATIVE (NEGATIVE); URINE CLARITY Clear (Clear); URINE COLOR Yellow (YELLOW); URINE GLUCOSE (UA) 1+ mg/dL (Normal); URINE PROTEIN NEGATIVE (NEGATIVE); URINE UROBILINOGEN NORMAL mg/dL (0.2-1.0)
[2018-07-12 03:05] LABS: ANISOCYTOSIS SLIGHT; BANDS 1 % (0-2); BASOPHIL 1 % (0-2); EOSINOPHIL 1 % (0-4); LYMPHOCYTE 9 % (20-40); MONOCYTE 8 % (0-10); NEUTROPHIL 80 % (50-75); PLATELET ESTIMATE NORMAL (NORMAL); TOTAL CELLS COUNTED 100
[2018-07-12 03:06] LABS: URINE LEUKOCYTE ESTERASE TRACE Leu/uL (Negative)
[2018-07-12 04:50] VITALS: BP 145/72; RESP 18; TEMP 97.9
[2018-07-12 04:52] VITALS: PULSE 80; O2SAT 96
== END 2018-07-12 05:09 | disposition home or self-care (01) ==
LOC: C.ER 01:19
DX: R11.2 Nausea with vomiting, unspecified (principal); T44.1X5A Adverse effect of other parasympathomimetics [cholinergics], initial encounter
CPT/HCPCS: 80053; 81001; 82948; 85025; 96374; 99285; J2405; J7040